=== PATIENT | female | born 1960 | race Caucasian/White ===

== ENCOUNTER → 2016-10-22 | Outpatient (CLI) | payer MEDICARE ==
[~2016-10-22] MED LIST: AMBIEN10 M1 PO; ANAPROX DS550 MG PO; BENICAR HCT 12.1 TAB PO; BENICAR5 MG PO; CEFTIN250 MG PO; CHANTIX STARTER1 TAB PO; CYMBALTA60 MG PO; DIAZEPAM2 MG PO; DUONEB 3 MG/3 ML3 M1 INH; FLEXERIL10 MG PO; FOSAMAX40 MG PO; FOSAMAX5 MG PO; HYDROCODONE BIT1 T11 PO; K-DUR 20MEQ20 MEQ PO; LEVAQUIN750 MG PO; MOBIC7.5 MG PO; NATURE'S BLEND F1 MG PO; NEXIUM I.V.40 MG PO; NORCO 325 MG-51 TAB PO; NORVASC2.5 MG PO; OSCAL/D,OYSTER250 MG PO; OXYCONTIN60 MG PO; PERCOCET 325 MG1 TA5 PO; PRAVACHOL20 MG PO; PREDNISONE10 MG PO; PREMPRO 0.45 MG1 TAB PO; PRILOSEC20 MG PO; PROAIR HFA0.09 MG/AC INH; PROTONIX40 M1; PROTONIX40 MG PO; PROVENTIL0.09 MG/AC IH; REGLAN10 MG PO; ROBAXIN750 MG PO; SULFADIAZINE500 MG PO; SYMBICORT1 AE1 IH; TRAMADOL HCL50 MG PO; VICODIN 500 MG-1 TAB PO; VITAMIN D50000 I3 PO; XANAX1 MG PO
[2016-10-22 14:59] LABS: ALBUMIN 3.8 gm/dl (3.1-4.5); ALKALINE PHOSPHATASE 67 U/L (45-117); BILIRUBIN, DIRECT 0.1 mg/dL (0.0-0.2); BILIRUBIN, TOTAL 0.4 mg/dl (0.2-1.0); BUN 19 mg/dl (7-24); CARBON DIOXIDE 27 mmol/L (21-32); CHLORIDE 104 mmol/L (98-107); CHOLESTEROL 199 mg/dL (<200); EST GLOM FILT AFRICAN AMERICAN > 60 ml/min; GLUCOSE 90 mg/dL (65-99); HDL CHOLESTEROL 64 mg/dl (40-60); LDL CHOLESTEROL 108 mg/dL (9-159); POTASSIUM 4.3 mmol/L (3.5-5.1); SGOT/AST 17 IU/L (3-35); SGPT/ALT 21 U/L (12-78); SODIUM 137 mmol/L (136-145); TOTAL PROTEIN 7.9 gm/dL (6.4-8.2); TRIGLYCERIDES 137 mg/dl (<150); VLDL CHOLESTEROL 27 mg/dL (6-40)
[2016-10-22 15:05] LABS: THYROID STIM HORMONE (HS) 0.715 uIU/ml (0.358-4.75)
[2016-10-22 15:36] LABS: HEMOGLOBIN A1c 5.9 % (4.8-5.6)
== END | disposition home or self-care (01) ==
LOC: LAB 13:28
PROVIDERS: Internal Medicine
DX: I10 Essential (primary) hypertension (principal); E55.9 Vitamin D deficiency, unspecified; E03.9 Hypothyroidism, unspecified; E72.11 Homocystinuria; E78.4 Other hyperlipidemia; R73.02 Impaired glucose tolerance (oral)

== ENCOUNTER → 2017-05-08 | Outpatient (CLI) | payer MEDICARE | END | disposition home or self-care (01) | LOC: RAD 15:22 | DX: M47.894 Other spondylosis, thoracic region (principal) ==

== ENCOUNTER → 2017-06-25 | Outpatient (CLI) | payer MEDICARE ==
[2017-06-25 14:15] LABS: ALBUMIN 3.5 gm/dl (3.1-4.5); CREATININE 1.3 mg/dL (0.55-1.02); FREE T4 1.04 ng/dl (0.76-1.46); POTASSIUM 4.3 mmol/L (3.5-5.1)
[2017-06-25 14:20] LABS: THYROID STIM HORMONE (HS) 0.6 uIU/ml (0.358-4.75)
== END | disposition home or self-care (01) ==
LOC: LAB 13:11
PROVIDERS: Internal Medicine
DX: I10 Essential (primary) hypertension (principal); E55.9 Vitamin D deficiency, unspecified; E72.11 Homocystinuria; E03.9 Hypothyroidism, unspecified

== ENCOUNTER → 2018-04-02 | Outpatient (CLI) | payer MEDICARE, MEDICAID | END | disposition home or self-care (01) | LOC: CARD 09:57 | DX: R06.09 Other forms of dyspnea (principal) ==

== ENCOUNTER → 2019-02-03 | Outpatient (CLI) | payer MEDICARE, MEDICAID ==
[~2019-02-03] MED LIST changes: +ADDERALL 10 MG10 MG PO; +AVALIDE 150-121 EACH PO; +CRESTOR20 M1 PO; +CYCLOBENZAPRINE10 MG PO; -FLEXERIL10 MG PO; +HYDROCHLOROTHIA25 M1 PO; +OXYCONTIN30 M1 PO; +Percocet 325 MG1 TAB PO; +SEROQUEL300 MG PO; +Synthroid,Levo88 MCG PO; +TOPROL XL25 MG PO; +ZANTAC 150150 MG PO
--- NOTE | ~2019-02-03 | ST ---
[place], [place] EXERCISE STRESS TEST REPORT NAME: JUAN AMBRIZ UNIT #: [id number] ROOM: DOCTOR: MARCIE MCKNIGHT MD BIRTHDATE: [birth year] DOS: 02/03/2019 LEXISCAN PORTION OF THE LEXISCAN CARDIOLITE Baseline cardiogram, normal sinus rhythm, 0.4 mg Lexiscan, duration of 10 seconds. With Lexiscan, she did have some shortness of breath, no obvious chest discomfort, mild ST depressions are present in the inferior leads. Blood pressure and heart rate response was normal. FINAL IMPRESSION: No new EKG changes except for mild ST depression in the inferior leads. No chest discomfort. Positive for shortness of breath. Nuclear images will be reported separately. MARCIE MCKNIGHT MD CM:STRESS:EXERCISE STRESS TEST REPORT [id number] MARCIE MCKNIGHT MD
--- NOTE | 2019-02-03 07:08 | NUR ---
INFORMED CONSENT SIGNED FOR LEXISCAN STRESS TEST WITH DR. MCKNIGHT. RESTING EKG NSR, HR 85, BP 122/80. PULSE OX 94% AND LUNGS CLEAR. COMPLETED ONE MINUTE OF LEXISCAN PROTOCOL RECEIVING LEXISCAN 0.4 MG OVER 10 SECONDS. NO ARRHYTMIAS OR ST CHANGES NOTED. PT C/O SOB. LAST RECOVERY HR 94, BP 106/64. WAITING NUCLEAR SCANNING IN STABLE CONDITION.
== END | disposition home or self-care (01) ==
LOC: CARD 01:21
DX: I20.9 Angina pectoris, unspecified (principal); R53.81 Other malaise; R06.02 Shortness of breath

== ENCOUNTER → 2019-09-29 | Outpatient (CLI) | payer MEDICARE, MEDICAID | END | disposition home or self-care (01) | LOC: CT 15:00 | DX: R91.1 Solitary pulmonary nodule (principal); R53.81 Other malaise; I20.9 Angina pectoris, unspecified ==

== ENCOUNTER → 2020-09-29 | Outpatient (CLI) | payer MEDICARE, MEDICAID | END | disposition home or self-care (01) | LOC: CT 10:47 | PROVIDERS: ATTEND Internal Medicine Critical Care Medicine | DX: J43.9 Emphysema, unspecified (principal); R91.8 Other nonspecific abnormal finding of lung field; I25.10 Atherosclerotic heart disease of native coronary artery without angina pectoris ==

== ENCOUNTER → 2021-02-14 | Outpatient (CLI) | payer MEDICARE, MEDICAID ==
[~2021-02-14] MED LIST changes: +SEROQUEL200 MG PO; -SEROQUEL300 MG PO; +VIT B COMPLEX PO; +VIT D PO
== END | disposition home or self-care (01) ==
LOC: CARD 02-07 00:11
PROVIDERS: ATTEND Internal Medicine Cardiovascular Disease
DX: R94.31 Abnormal electrocardiogram [ECG] [EKG] (principal)

== ENCOUNTER → 2022-01-09 | Day surgery (SDC) | payer MEDICARE, MEDICAID ==
[2022-01-09] VITALS (7 sets, daily range): BP systolic 117–181; BP diastolic 81–98
[~2022-01-09] VITALS: Ht 167.6 cm; Wt 77.1 kg
== END | disposition home or self-care (01) ==
LOC: SDC 01-05 08:00
PROVIDERS: ATTEND Orthopaedic Surgery
DX: M16.0 Bilateral primary osteoarthritis of hip (principal); J44.9 Chronic obstructive pulmonary disease, unspecified; I10 Essential (primary) hypertension; F41.9 Anxiety disorder, unspecified; F32.9 Major depressive disorder, single episode, unspecified; Z87.891 Personal history of nicotine dependence; Z98.890 Other specified postprocedural states; Z79.899 Other long term (current) drug therapy

== ENCOUNTER → 2022-04-27 | Outpatient (CLI) | payer MEDICARE, MEDICAID | END | disposition home or self-care (01) | LOC: RAD 15:48 | PROVIDERS: ATTEND Nurse Practitioner | DX: R06.02 Shortness of breath (principal) ==

== ENCOUNTER → 2022-08-15 | Outpatient (CLI) | payer MEDICARE, MEDICAID | END | disposition home or self-care (01) | LOC: ORTHO 00:32 | PROVIDERS: ATTEND Orthopaedic Surgery | DX: M16.0 Bilateral primary osteoarthritis of hip (principal) ==

== ENCOUNTER → 2022-12-24 | Outpatient (CLI) | payer MEDICARE, MEDICAID | END | disposition home or self-care (01) | LOC: RAD 14:42 | PROVIDERS: ATTEND Nurse Practitioner | DX: Z01.818 Encounter for other preprocedural examination (principal); J43.9 Emphysema, unspecified ==

== ENCOUNTER → 2023-02-15 | Outpatient (CLI) | payer MEDICARE ==
[~2023-02-15] MED LIST changes: +GOOD SENSE ASPI81 M1 PO; +OXYCONTIN20 M1 PO; +PROVENTIL HFA6.7 GM INH; +ZANAFLEX4 MG PO
== END | disposition home or self-care (01) ==
LOC: ORTHO 00:26
PROVIDERS: ATTEND Orthopaedic Surgery
DX: Z47.1 Aftercare following joint replacement surgery (principal); Z96.642 Presence of left artificial hip joint

== ENCOUNTER → 2023-03-15 | Outpatient (CLI) | payer MEDICARE | END | disposition home or self-care (01) | LOC: ORTHO 01:06 | PROVIDERS: ATTEND Orthopaedic Surgery | DX: Z47.1 Aftercare following joint replacement surgery (principal); Z96.642 Presence of left artificial hip joint ==

== ENCOUNTER → 2023-05-22 | Outpatient (CLI) | payer MEDICARE | END | disposition home or self-care (01) | LOC: ORTHO 03:02 | PROVIDERS: ATTEND Orthopaedic Surgery | DX: Z47.1 Aftercare following joint replacement surgery (principal) ==

== ENCOUNTER → 2023-06-19 | Outpatient (CLI) | payer MEDICARE | END | disposition home or self-care (01) | LOC: ORTHO 01:03 | PROVIDERS: ATTEND Orthopaedic Surgery | DX: Z96.642 Presence of left artificial hip joint (principal) ==

== ENCOUNTER → 2023-08-16 | Outpatient (CLI) | payer MEDICARE | END | disposition home or self-care (01) | LOC: ORTHO 01:39 | PROVIDERS: ATTEND Orthopaedic Surgery | DX: Z96.642 Presence of left artificial hip joint (principal) ==